=== PATIENT | female | born 1975 | race Asian ===

== ENCOUNTER 2025-05-01 17:08 | Emergency (ER) | payer SELFPAY ==
[~2025-05-01] VITALS: Ht 160 cm; Wt 76.8 kg
[2025-05-01 17:12] VITALS: BP 137/80; PULSE 81; RESP 18; TEMP 97.2; O2SAT 98
[2025-05-01] MEDS ORDERED: LISI-657 PO (17:16)
[2025-05-01] MEDS: PERTUSS(ACELL),DIPH,TET/PF 0.5 ML SYRINGE [ADULT] IM. ONE (18:36)
[2025-05-01] MEDS ORDERED: AMOX-426 PO (18:43)
== END 2025-05-01 18:49 | disposition home or self-care (01) ==
LOC: EMS 17:08
DX: S91.052A Open bite, left ankle, initial encounter (principal); I10 Essential (primary) hypertension; Z79.899 Other long term (current) drug therapy; W55.01XA Bitten by cat, initial encounter; Y93.89 Activity, other specified; Y92.89 Other specified places as the place of occurrence of the external cause; Y99.8 Other external cause status
CPT/HCPCS: 90471; 90715; 99283